=== PATIENT | female | born 1930 | race Caucasian/White ===

== ENCOUNTER 2017-08-07 02:15 | Inpatient (IN) | payer OTHER, MEDICARE ==
[~2017-08-07] VITALS: Ht 154.9 cm; Wt 45.0 kg
[~2017-08-07 02:15] MED LIST: FERROUS SULFAT325 M3; MAGNESIUM400 M1; TYLENOL EXTRA500 M2; VITAMIN B-121000 MC3 PO; VITAMIN B-650 M2 PO; ZANTAC150 M1 PO; ZINC10 M1; ZOLOFT50 M1 PO
[2017-08-07] MEDS ORDERED: MIRALAX17 G1 PO (11:33)
[2017-08-07] MEDS ORDERED: ASPIRIN EC325 M2 PO (11:33)
[2017-08-07] MEDS ORDERED: DILAUDID2 M1 PO (11:33)
[2017-08-07] MEDS ORDERED: PRILOSEC OTC20 M1 PO (11:33)
[2017-08-07] MEDS ORDERED: COLACE100 M1 PO (11:33)
--- NOTE | 2017-08-07 11:38 | Admission Core Measures ---
Acute Coronary Syndrome (CM) ACS Core Measures Acute Coronary Syndrome Diagnosis No Congestive Heart Failure (NEW) CHF Core Measures Congestive Heart Failure Diagnosis No Cerebrovascular Accident (NEW) CVA Core Measures CVA/TIA Diagnosis No Venous Thromboembolism VTE Core Luis (View Protocol) VTE Risk Factors Surgery No Mechanical VTE Prophylaxis d/t N/A MechProphylax Ordered No VTE Pharm Prophylaxis d/t NA PharmProphylax ordered Problem List As ranked by this Provider includes Assessment & Plan 1. Unilateral primary osteoarthritis, right knee HOME MEDS Home Med List Aspirin (Ecotrin*) 325 MG TABLET.DR 1 TAB PO BID ANTICOAGULATION Cyanocobalamin (Vitamin B-12) 1,000 MCG TABLET 1 TAB PO DAILY SUPPLEMENT ( Reported) Docusate Sodium (Colace) 100 MG CAPSULE 1 CAP PO BID STOOL SOFTENER Hydromorphone HCl (Dilaudid) 2 MG TABLET 1-2 TAB PO Q4-6 PRN PRN PAIN Omeprazole Magnesium (Prilosec Otc) 20 MG TABLET.DR 1 TAB PO DAILY GI PROTECTION Polyethylene Glycol 3350 (Miralax) 17 GRAM POWD.PACK 1 PAC PO DAILY CONSTIPATION Pyridoxine HCl (Vitamin B-6) 50 MG TABLET 1 TAB PO DAILY SUPPLEMENT (Reported ) Ranitidine HCl (Zantac) 150 MG TABLET 1 TAB PO BID GERD (Reported) Sertraline HCl (Zoloft) 50 MG TABLET 1 TAB PO DAILY MOOD (Reported)
--- NOTE | 2017-08-07 11:38 | Patient Discharge Instructions ---
See Addendum Discharge Instructions General Discharge Information You were seen/treated for: right knee pain You had these procedures: Right total knee replacement Watch for these problems: fever over 100.5 drainage from wound unable to bear weight on right leg Call Surgeon to remove: wound check in 6 weeks No bath, but you may shower: Yes Other wound care: daily dry dressing change Diet Continue normal diet: Yes Activity Activity Self Limited: Yes Activity Limited to: Weight bear as tolerated Acute Coronary Syndrome Inclusion Criteria At DC or during hospital stay patient has or had the following: ACS DIAGNOSIS No Discharge Core Measures Meds if any: Prescribed or Continued at Discharge Meds if any: NOT Prescribed or Continued at Discharge Congestive Heart Failure Inclusion Criteria At DC or during hospital stay patient has or had the following: CHF DIAGNOSIS No Discharge Core Measures Meds if any: Prescribed or Continued at Discharge Meds if any: NOT Prescribed or Continued at Discharge Cerebrovascular accident Inclusion Criteria At DC or during hospital stay patient has or had the following: CVA/TIA Diagnosis No Discharge Core Measures Meds if any: Prescribed or Continued at Discharge Meds if any: NOT Prescribed or Continued at Discharge Venous thromboembolism Inclusion Criteria VTE Diagnosis No VTE Type NONE VTE Confirmed by (Test) NONE Discharge Core Measures - Per Current guidelines, there needs to be overlap - treatment for the first 5 days of Warfarin therapy. - If discharged on Warfarin prior to 5 days of - overlap therapy, the patient will need to be - assessed for post discharge needs including - *Post discharge parental anticoagulation - *Warfarin and/or parental anticoagulation education - *Follow up date to check INR post discharge At least 5 days overlap therapy as Inpatient No Meds if any: Prescribed or Continued at Discharge Note: Overlap Therapy is Warfarin and Anticoagulant Meds if any: NOT Prescribed or Continued at Discharge
--- NOTE | 2017-08-07 11:42 | Surgical Discharge Summary ---
Visit Information Visit Dates Admission Date: 08/07/17 Discharge Date: 08/10/17 History of Present Illness Chief Complaint: right knee pain Medical History Isolation History: Standard Surgical History Pertinent Surgical History: non-contributory Review of Systems: none Physical Exam: Gen - nad Cardiac -S1S2 Lungs- CTAB Ext - Right adrienne wrap in place, incision closed with rené and sutures inferiorly, mild swelling, no erythema or drainage noted, significant ecchymosis noted, appropriately tender, compartment soft, senosry and motor intact, dressing changed, no edema or calf tenderness Hospital Course Course Attending Physician: Ino Catalan MD Primary Care Physician: Unknown Hospital Course: Pt presented to [facility] on 08/07/17 for an elective right total knee replacement with Dr. Catalan. She tolerated the procedure well. Post- operatively she was tolerating oral intake, voiding, her pain was controlled with oral medications, and she was cleared for discharge by physical therapy. She developed a syncopal episode with ekg changes and was evaluated by Cardiology who recommended CTA to r/o PE which was negative. She was also started on a statin and a beta ceasar, and will be provided with a script upon discharge. Incidental finding of a descending aortic aneurysm and was instructed to follow up with her PCP for further evaluation. Discharge instructions were reviewed with her and she was instructed to follow-up with Dr. Catalan in 6 weeks and to call sooner if she has any questions or concerns. Allergies: Coded Allergies: No Known Allergies (08/04/17) Disposition Summary Disposition Principal Diagnosis: primary unilateral right knee osteoarthritis Additional Diagnosis: SP Right TKA Discharge Disposition: home health services Discharge Instructions General Discharge Information Code Status: Full Code Patient's Diet: Regular Patient's Activity: wbat Follow-Up Instructions/Appts: [address] Catalan Medications at Discharge Discharge Medications: Continue taking these medications: Sertraline HCl (Zoloft) 50 MG TABLET 1 Tablet ORAL DAILY Comments: Last Taken: 08/10/17 Time: 09 Ferrous Sulfate (Ferrous Sulfate) 325 MG (65 MG IRON) TABLET Comments: NOT GIVEN IN HOSPITAL Pyridoxine HCl (Vitamin B-6) 50 MG TABLET 1 Tablet ORAL DAILY Comments: NOT GIVEN IN HOSPITAL Magnesium Oxide (Magnesium) 400 MG CAPSULE Comments: Last Taken: 08/10/17 IV GIVEN Time: 1343 Zinc Gluconate (ZINC) 10 MG LOZENGE Comments: NOT GIVEN IN HOSPITAL Cyanocobalamin (Vitamin B-12) 1,000 MCG TABLET 1 Tablet ORAL DAILY Comments: NOT GIVEN IN HOSPITAL Ranitidine HCl (Zantac) 150 MG TABLET 1 Tablet ORAL TWICE DAILY Comments: Last Taken: 08/09/17 Time: 06 Acetaminophen (Tylenol Extra Strength) 500 MG TABLET Comments: Last Taken: 08/10/17 Time: 1516 Start taking the following new medications: Aspirin (Ecotrin*) 325 MG TABLET.DR 1 Tablet ORAL TWICE DAILY Qty = 60 No Refills Comments: Last Taken: 08/10/17 Time: 923 Docusate Sodium (Colace) 100 MG CAPSULE 1 Capsule ORAL TWICE DAILY Qty = 7 No Refills Instructions: STOP TAKING IF YOU DEVELOP LOOSE STOOL/DIARRHEA Comments: Last Taken: 08/10/17 Time: 922 Hydromorphone HCl (Dilaudid) 2 MG TABLET 1-2 Tablet ORAL EVERY 4-6 HOURS NEEDED as needed for PAIN Qty = 36 No Refills Comments: Last Taken: 08/09/17 Time: 2100 Polyethylene Glycol 3350 (Miralax) 17 GRAM POWD.PACK 1 Packet ORAL DAILY Qty = 7 No Refills Instructions: dissolve in water. STOP TAKING IF YOU DEVELOP LOOSE STOOL/DIARRHEA Comments: Last Taken: 08/10/17 Time: 922 Omeprazole Magnesium (Prilosec Otc) 20 MG TABLET.DR 1 Tablet ORAL DAILY Qty = 30 No Refills Comments: Last Taken: 08/09/17 Time: 06 Atorvastatin Calcium (Atorvastatin Calcium) 10 MG TABLET 1 Tablet ORAL DAILY Qty = 30 No Refills Metoprolol Tartrate (Metoprolol Tartrate) 25 MG TABLET 12.5 Milligram ORAL TWICE DAILY Qty = 60 No Refills
[2017-08-07 11:53] LABS: ABSOLUTE BASOPHIL COUNT 0 /CUMM (0.0-0.2); ABSOLUTE EOSINOPHIL COUNT 0.1 /CUMM (0.0-0.7); ABSOLUTE GRANULOCYTE CT 13.3 /CUMM (1.4-6.5); ABSOLUTE MONOCYTE COUNT 1.3 /CUMM (0.10-0.60); BASOPHIL % 0.1 % (0.0-2.0); EOSINOPHIL % 0.7 % (0-5); GRANULOCYTE % 79.5 % (42.2-75.2); HEMATOCRIT 32.4 % (37-47); MEAN CORPUSCULAR HGB 31.7 PG (27.0-31.0); MEAN CORPUSCULAR HGB CONC 33.6 G/DL (33.0-37.0); MEAN CORPUSCULAR VOLUME 94.4 FL (81.0-99.0); MEAN PLATELET VOLUME 6.8 FL (7.4-10.4); PLATELET COUNT 422 /CUMM (130-400); RED BLOOD CELL CT 3.43 /CUMM (4.20-5.40); WHITE BLOOD CELL COUNT 16.8 /CUMM (4.8-10.8)
--- NOTE | 2017-08-07 13:29 | Operative Report ---
Operative/Inv Procedure Report Surgery Date: 08/07/17 Name of Procedure: Right total knee replacement Pre-Operative Diagnosis: Primary right knee DJD Post-Operative Diagnosis: Same Estimated Blood Loss: 50ml to 100ml Surgeon/Diesel Engine Erector: Alayna GUTIÉRREZ,Ino Ann Anesthesia: block Operative/Procedure Note Note: Description of Procedure: The patient was taken to the operating room and positively identified. After induction of spinal anesthesia and administration of appropriate pre-operative antibiotics, the patient was positioned supine on the operating room table and all bony prominences were well padded. A well-padded pneumatic tourniquet was placed on the right upper thigh. After performing a surgical timeout, the right lower extremity was prepped and draped in the usual sterile fashion. After exsanguination with Esmarch the tourniquet was inflated to 250mm of mercury. A standard medial parapatellar approach was made to the knee. This was carried down through skin and subcutaneous tissue to the level of the fascia. Meticulous hemostasis was maintained with Bovie electrocautery. The extensor mechanism and patellar retinaculum were opened sharply and the patella was everted. The infrapatellar fat was resected in order to improve exposure. Osteophytes were trimmed from the patella and femoral condyles and the patella was re-everted and tucked laterally. A medial release was performed and the cruciate ligaments were resected. The tibia was then subluxed anteriorly. At this point was noted that her bone was extremely osteoporotic. Utilizing the appropriate extra-medullary guide, the proximal tibia was trimmed perpendicular to the long axis of the tibial shaft. Attention was then turned to the femur. After opening the medullary canal, the distal femoral cut was made in 6 degrees of valgus utilizing the appropriate intra-medullary guide. The extension gap was checked and found to be appropriate. The femur was then sized and the remainder of the femoral cuts were made with a size #2 4-in-1 femoral cutting guide. The flexion gap was checked and found to be symmetric and appropriate. The knee was then trialed with a size #2CR femoral component, a size #2 tibial component and a size 13 mm CS polyethylene insert. The patella was not resurfaced due to its reasonably good preoperative condition. This yielded excellent range of motion, stability and patellar tracking. All trial components were removed and the knee was copiously irrigated with sterile saline. All components were cemented into place with [employer]plex cement. All the components were of the [employer] knee system of the above stated sizes. The knee was again irrigated after cementation. The extensor mechanism and patellar retinaculum were repaired using interrupted #1 vicryl suture. The skin was re-approximated with 2-0 vicryl and closed with rené. A sterile dressing was applied, the tourniquet was deflated, the patient was awakened and taken to the recovery room in satisfactory condition.
--- NOTE | 2017-08-07 15:59 | PN- Orthopedic ---
Subjective Subjective: POC feeling ok, no pain. awaiting bed assignment in PACU. DTV postop. naveed crackers, water. no oob yet Objective Vital Signs and I&Os HR 80s Physical Exam: GEN- NAD CARD- S1S2 RRR PULM- CTAB ABD- soft nt EXT-right lle dressed in adrienne, feet warm, gross motor/sensation intact/equal bl, calves soft nt, onQ catheter in place- bulb not on Assessment/Plan Assessment/Plan A- POD0 sp R TKR, stable, awaiting pt eval P- prn pain meds asa 325bid, alps oob, pt, wbat home meds prn antiemetics dsg change pod2 onq dc planning Core Measures Venous Thromboembolism VTE Risk Factors Surgery No Mechanical VTE Prophylaxis d/t N/A MechProphylax Ordered No VTE Pharm Prophylaxis d/t NA PharmProphylax ordered
[2017-08-07 17:10] VITALS: BP 160/80
[2017-08-07 21:30] VITALS: BP 160/90
[2017-08-08 01:00] VITALS: BP 146/78
[2017-08-08 07:02] VITALS: BP 132/74
[2017-08-08 08:41] LABS: ABSOLUTE BASOPHIL COUNT 0.1 /CUMM (0.0-0.2); ABSOLUTE EOSINOPHIL COUNT 0 /CUMM (0.0-0.7); ABSOLUTE GRANULOCYTE CT 14.9 /CUMM (1.4-6.5); ABSOLUTE LYMPH COUNT 1.6 /CUMM (1.2-3.4); ABSOLUTE MONOCYTE COUNT 1.8 /CUMM (0.10-0.60); BASOPHIL % 0.7 % (0.0-2.0); EOSINOPHIL % 0 % (0-5); GRANULOCYTE % 80.8 % (42.2-75.2); HEMATOCRIT 29.5 % (37-47); MEAN CORPUSCULAR HGB CONC 33.9 G/DL (33.0-37.0); MEAN CORPUSCULAR VOLUME 94.6 FL (81.0-99.0); MEAN PLATELET VOLUME 7.7 FL (7.4-10.4); PLATELET COUNT 413 /CUMM (130-400); RBC DISTRIBUTION WIDTH 14.8 % (11.5-14.5); RED BLOOD CELL CT 3.12 /CUMM (4.20-5.40); WHITE BLOOD CELL COUNT 18.4 /CUMM (4.8-10.8)
[2017-08-08 11:30] VITALS: BP 120/70
[2017-08-08 15:24] VITALS: BP 114/78
--- NOTE | 2017-08-08 15:59 | Event Note ---
Event Note Event Note: Rapid response was called when she was found to have had a syncopal episode that lasted for less than 30 seconds while she was undergoing physical therapy. Ms Reyes had a TKR POD 0 known smoker, with no previous cardiac history or stents placed in the past. She was found to have had a staring episode that lasted for 30 seconds or so. She felt lightheaded prior to the episode, but did not recollect anything after the episode. she was alert and oriented after the episode. No dyspnea, chest discomfort, abdominal pain or vomiting. When she was examined, she did not have any symptoms- vitals stable BP 120/82, RR 86, Pulse ox 94 RA. Heart and lung exam wnl. EKG was ordered that revealed new Q waves in V2, V3 and ST elevation of 1mm or so, in V3, V4 which were new compared to . Serial EKGs and Troponins ordered. Discussed the EKG w/ Dr Duarte who came up to see the pt right away. After he evaluated the pt, he thought that RI is not completely ruled out given absence of symptoms. Other thoughts were if the leads were misplaced. Plan was discussed with Dr. Duarte and kalie Horn, and asked him to inform the attending. Plan was to transfer the pt to telemetry for further monitoring and follow up on troponin level. She was already given aspirin in the am, and no new medical recommendations were made. Informed Kory to follow up on Troponin level and follow up on cardiology recommendations for further work up. Also, asked him to call the attending and MOD to get a medical consult to make sure that these are followed up.
--- NOTE | 2017-08-08 16:16 | Event Note ---
Event Note Event Note: troponin 0.83 with ekg chnages during possible/seizure/syncopal episode earlier this afternoon transferred to tele per cardiology currently patient resting comfortably deneis cp, sob, palpitations, n+v, vss plan reviewed with dr gomez will repeat ekg/troponin @1900(4hrs after 1st draw) has already taken asa 325mg po this am no other pharm intervention at this time will monitor closely attending notified
[2017-08-08 17:38] VITALS: BP 118/59
--- NOTE | 2017-08-08 18:59 | Cons- Cardiology ---
General Information and HPI Consulting Request Date of Consult: 08/08/17 Requested By: Ino Catalan MD History of Present Illness: This patient is an 86 year old female with history of tobacco abuse who underwent a right total knee replacement today. Surgery went well but following her surgery, while engaged in conversation with physical therapy, the patient suddenly had a staring episode that lasted about 30 seconds. There was a pre- monitory feeling of lightheadedness but not palpitations. There was no associated incontinence and the patient did not appear post ictal but rather was alert following the episode. An ECG was done that disclosed precordial ST elevations. In consideration of this abnormal ECG the patient was immediately seen and appeared well. She denies any chest pain, pressure, tightness, shortness of breath, lightheadedness or palpitations. She has noted heartburn in the past but not at this time. The patient's blood pressure was reportedly 120/ 82 with a HR of 86 and had a normal O2 saturation of 94%. Her troponin is mildly elevated. Allergies/Medications Allergies: Coded Allergies: No Known Allergies (08/04/17) Home Med List: Acetaminophen (Tylenol Extra Strength) 500 MG TABLET PAIN (Reported) Aspirin (Ecotrin*) 325 MG TABLET.DR 1 TAB PO BID ANTICOAGULATION Cyanocobalamin (Vitamin B-12) 1,000 MCG TABLET 1 TAB PO DAILY SUPPLEMENT ( Reported) Docusate Sodium (Colace) 100 MG CAPSULE 1 CAP PO BID STOOL SOFTENER STOP TAKING IF YOU DEVELOP LOOSE STOOL/DIARRHEA Ferrous Sulfate 325 MG (65 MG IRON) TABLET SUPPLEMENT (Reported) Hydromorphone HCl (Dilaudid) 2 MG TABLET 1-2 TAB PO Q4-6 PRN PRN PAIN Magnesium Oxide (Magnesium) 400 MG CAPSULE SUPPLEMENT (Reported) Omeprazole Magnesium (Prilosec Otc) 20 MG TABLET.DR 1 TAB PO DAILY GI PROTECTION Polyethylene Glycol 3350 (Miralax) 17 GRAM POWD.PACK 1 PAC PO DAILY CONSTIPATION dissolve in water. STOP TAKING IF YOU DEVELOP LOOSE STOOL/DIARRHEA Pyridoxine HCl (Vitamin B-6) 50 MG TABLET 1 TAB PO DAILY SUPPLEMENT (Reported ) Ranitidine HCl (Zantac) 150 MG TABLET 1 TAB PO BID GERD (Reported) Sertraline HCl (Zoloft) 50 MG TABLET 1 TAB PO DAILY MOOD (Reported) Zinc Gluconate (ZINC) 10 MG LOZENGE SUPPLEMENT (Reported) Review of Systems Review of Systems: A twelve point review of systems is remarkable for occasional heartburn. Past History Medical History Blood Transfusion Hx: No Respiratory: SMOKER Gastrointestinal: PERF GASTRIC ULCER Psychiatric: depression Cancer(s): breast cancer Surgical History Surgical History: DOUBLE MASTECTOMY 30YRAGO, breast implants Psychosocial History Where Do You Live? Home Services at Home: Home Health Aide Smoking Status: Current Everyday Smoker Exam & Diagnostic Data Vital Signs and I&O Vital Signs Date Time Temp Pulse Resp B/P B/P Pulse O2 O2 Flow FiO2 Mean Ox Delivery Rate 08/08 1524 97.8 79 20 114/78 97 08/08 1130 97.8 72 16 120/70 100 08/08 0702 97.6 71 20 132/74 98 Room Air 08/08 0100 97.6 75 20 146/78 99 Room Air 08/07 2130 98.1 82 20 160/90 98 Room Air 08/07 1943 Room Air Intake & Output 08/08 1600 08/08 0800 08/08 0000 08/07 1600 08/07 0800 08/07 0000 Intake Total 1205 850 800 Output Total 125 445 200 Balance 1080 405 600 Intake, IV 525 600 520 Intake, Oral 680 250 280 Output, Urine 125 445 200 Patient 100 lb 86 lb Weight Weight Reported by Patient Measurement Method Physical Exam: General: WD/WN female in NAD; alert and oriented x 3 HEENT: NC/AT, PERRL, EOMI Neck: no JVD, no carotid bruit Heart: RRR w/o murmur Lungs: clear bilaterally Abdomen: soft, NT, +ve bowel sounds Extremities: no edema Assessment/Plan Assessment/Plan * This patient has an abnormal ECG with elevated troponin. She did have some slight precordial ST elevations even at baseline but the current changes are a bit worse. In consideration of her complete lack of discomfort, I am not convinced that she is having a major anterior [place] but there is the possibility that the patient is a poor historian and I am being misled. We will follow her symptoms and cardiac enzymes until they peak with a repeat ECG and set of enzymes in four hours. IV heparin and anticoagulants that may be needed in the setting of a percutaneous coronary intervention would be at elevated risk in the setting of surgery today and the patient is also not a candidate for TPA for the same reason. Consideration should be given to the rise in troponin from a PE after her surgery. I recommend obtaining a D-dimer and ABG. If either of these are abnormal then send patient for a CT angiogram to assess for a PE. Monitor on telemetry. Begin aspirin 325mg daily. If chest discomfort add NTG paste 1/2 inch !Q 6 hours. * The patient's brief staring episode may have been neurologic in origin but consideration needs to be given to a ventricular dysrhythmia. We will monitor this patient on telemetry. Begin Metoprolol 12.5mg BID. Consult Acknowledgment - Thank you for your consult request.
[2017-08-08 22:45] VITALS: BP 114/70
--- NOTE | 2017-08-09 07:06 | PN- Orthopedic ---
Subjective Subjective: POD#2 S/P RIGHT TKA Transferred to tele yesterday afternoon for syncopal episode and ekg chnages no major issues overnight janes cp, sob, no n+v troponin yesterday .66(.83) metoprolol started yesterday per cardiology resting comfortably now, in good spirits, asking if she will be able to home tomorrow Objective Vital Signs and I&Os Vital Signs Date Time Temp Pulse Resp B/P B/P Pulse O2 O2 Flow FiO2 Mean Ox Delivery Rate 08/08 2245 98.8 83 18 114/70 97 08/08 1524 97.8 79 20 114/78 97 08/08 1130 97.8 72 16 120/70 100 Intake & Output 08/09 0800 08/09 0000 08/08 1600 08/08 0800 08/08 0000 08/07 1600 Intake Total 1205 850 800 Output Total 400 125 445 200 Balance -400 1080 405 600 Intake, IV 525 600 520 Intake, Oral 680 250 280 Output, Urine 400 125 445 200 Patient 99 lb 5 oz 100 lb 86 lb Weight Weight Reported by Patient Measurement Method Physical Exam: cv: rrr lungs: clear abd; soft, +bs ext: drsg changed, wound c/d/i no calf tenderness bilat distal cms intact Assessment/Plan Assessment/Plan ortho stable no cardiac events overnight denies cp now plan f/u cardiology if stable transfer back to [facility] and resume pt f/u am labs advance diet titrate pain meds Core Measures Venous Thromboembolism VTE Risk Factors Surgery No Mechanical VTE Prophylaxis d/t N/A MechProphylax Ordered No VTE Pharm Prophylaxis d/t NA PharmProphylax ordered
[2017-08-09 07:53] VITALS: BP 122/68
[2017-08-09 08:43] LABS: ABSOLUTE BASOPHIL COUNT 0.1 /CUMM (0.0-0.2); ABSOLUTE EOSINOPHIL COUNT 0 /CUMM (0.0-0.7); ABSOLUTE LYMPH COUNT 1.2 /CUMM (1.2-3.4); ABSOLUTE MONOCYTE COUNT 1.8 /CUMM (0.10-0.60); BASOPHIL % 0.3 % (0.0-2.0); EOSINOPHIL % 0.2 % (0-5); GRANULOCYTE % 82.8 % (42.2-75.2); HEMATOCRIT 28.2 % (37-47); MEAN CORPUSCULAR HGB 31.9 PG (27.0-31.0); MEAN CORPUSCULAR HGB CONC 33.3 G/DL (33.0-37.0); MEAN CORPUSCULAR VOLUME 95.8 FL (81.0-99.0); MEAN PLATELET VOLUME 7.9 FL (7.4-10.4); PLATELET COUNT 406 /CUMM (130-400); RBC DISTRIBUTION WIDTH 14.9 % (11.5-14.5); RED BLOOD CELL CT 2.94 /CUMM (4.20-5.40); WHITE BLOOD CELL COUNT 18.1 /CUMM (4.8-10.8)
[2017-08-09 14:40] VITALS: BP 122/74
--- NOTE | 2017-08-09 17:37 | PN- Cardiology ---
Subjective Subjective: * No chest pain or shortness of breath. * Cardiac enzymes had an initial small rise and are coming down. Objective Vital Signs and I&Os Vital Signs Date Time Temp Pulse Resp B/P B/P Pulse O2 O2 Flow FiO2 Mean Ox Delivery Rate 08/09 1440 99.0 86 18 122/74 96 Room Air 08/09 0855 126/68 08/09 0753 98.4 84 18 122/68 95 Room Air 08/08 2245 98.8 83 18 114/70 97 Intake & Output 08/09 1600 08/09 0800 08/09 0000 08/08 1600 08/08 0800 08/08 0000 Intake Total 450 1205 850 800 Output Total 375 400 125 445 200 Balance 75 -400 1080 405 600 Intake, IV 525 600 520 Intake, Oral 450 680 250 280 Output, Urine 375 400 125 445 200 Patient 99 lb 5 oz 100 lb 86 lb Weight Weight Reported by Patient Measurement Method Physical Exam: General: WD/WN female in NAD; alert and oriented x 3 HEENT: NC/AT, PERRL, EOMI Neck: no JVD, no carotid bruit Heart: RRR w/o murmur Lungs: clear bilaterally Abdomen: soft, NT, +ve bowel sounds Extremities: no edema Assessment/Plan Assessment/Plan * Consideration should be given to the rise in troponin from a PE after her surgery. Would pursue a D-dimer and ABG as previously recommended. If either of these are abnormal then send patient for a CT angiogram to assess for a PE. * This patient had an abnormal ECG with elevated troponin. She did have some slight precordial ST elevations even at baseline but her post operative ECG did appear a bit worse. I do not think this patient experienced any major anterior CT but she likely does have some degree of coronary artery disease. We will continue medical therapy and will risk stratify her as an outpatient to determine the extent of ischemia. If mild and non-life threatening then medical therapy will be pursued. If chest discomfort add NTG paste 1/2 inch !Q 6 hours. Continue aspirin and begin a statin. * The patient's brief staring episode may have been neurologic in origin but consideration needs to be given to a ventricular dysrhythmia. We will monitor this patient on telemetry. Continue Metoprolol 12.5mg BID. Continue telemetry? Yes
[2017-08-09 20:29] VITALS: BP 104/64
[2017-08-10 06:57] VITALS: BP 144/80
--- NOTE | 2017-08-10 08:08 | PN- Orthopedic ---
Subjective Subjective: Patient offers no complaints this morning. Reports voiding spontanously, passing flatus and tolerating a diet. Pain is currently well controlled. No further episodes of syncope Objective Vital Signs and I&Os Vital Signs Date Time Temp Pulse Resp B/P B/P Pulse O2 O2 Flow FiO2 Mean Ox Delivery Rate 08/10 0657 98.4 98 20 144/80 94 Room Air 08/09 210 97 106/66 08/09 2028 99.4 97 18 104/64 94 08/09 1440 99.0 86 18 122/74 96 Room Air 08/09 0855 126/68 Intake & Output 08/10 1600 08/10 0800 08/10 0000 08/09 1600 08/09 0800 08/09 0000 Intake Total 120 290 450 Output Total 450 200 375 400 Balance -330 90 75 -400 Intake, IV 50 Intake, Oral 120 240 450 Output, Urine 450 200 375 400 Patient 99 lb 5 oz Weight Physical Exam: Gen - nad Cardiac -S1S2 Lungs- CTAB Ext - Right adrienne wrap in place, incision closed with rené and sutures inferiorly, mild swelling, no erythema or drainage noted, significant ecchymosis noted, appropriately tender, compartment soft, senosry and motor intact, dressing changed, no edema or calf tenderness Current Medications: Current Medications Sig/Gilberto Start time Last Medication Dose Route Stop Time Status Admin Aspirin 325 MG BID 08/07 2199 AC 08/09 PO 2099 Docusate Sodium 100 MG BID 08/07 2199 AC 08/09 PO 2100 Hydromorphone HCl 2 MG Q4P PRN 08/07 1715 AC 08/09 PO 210 Hydromorphone HCl 4 MG Q4P PRN 08/07 171 PO Magnesium Sulfate 1 GM Q2H 08/09 1545 CA 08/09 Dextrose/Water 100 ML IV 08/09 1944 1855 Melatonin 5 MG .STK-MED ONE 08/09 2057 DC PO 08/09 2058 Melatonin 5 MG AT BEDTIME PRN 08/08 0130 08/09 PO 2100 Metoprolol Tartrate 12.5 MG BID 08/09 1000 AC 08/09 PO 210 Morphine Sulfate 2 MG Q2P PRN 08/07 1715 AC 08/10 IV 0013 Nicotine 14 MG DAILY 08/07 1342 TOP Omeprazole 20 MG DAILY AC 08/08 0700 AC 08/09 PO 0631 Ondansetron HCl 4 MG Q6P PRN 08/07 213 AC 08/07 IV 2139 Polyethylene Glycol 17 GM DAILY 08/08 1000 AC 08/09 PO 0856 Potassium Chloride 40 MEQ ONCE ONE 08/09 1545 DC 08/09 PO 08/09 1546 1705 Promethazine HCl 12.5 MG Q6-PRN PRN 08/07 2129 AC 08/07 IV 08/14 2128 2244 Ropivacaine 500 ML ONCE ONE 08/07 1515 DC 08/07 ON-Q Ball 1 BAG INJ 08/10 0544 1515 Sertraline HCl 50 MG DAILY 08/08 1000 AC 08/09 PO 0857 Results Last 48 Hours of Labs: Laboratory Tests 08/10 08/09 08/08 0630 0626 2100 Chemistry Sodium (137 - 145 mmol/L) Pending 131 L Potassium (3.5 - 5.1 mmol/L) Pending 3.5 Chloride (98 - 107 mmol/L) Pending 94 L Carbon Dioxide (22 - 30 mmol/L) Pending 26 Anion Gap (5 - 16) Pending 12 BUN (7 - 17 mg/dL) Pending 12 Creatinine (0.5 - 1.0 mg/dL) Pending 0.6 Estimated GFR (>60 ml/min) > 60 BUN/Creatinine Ratio (7 - 25 %) Pending 20.0 Phosphorus Pending Magnesium (1.6 - 2.3 mg/dL) Pending 1.0 L Troponin I (< 0.11 ng/ml) 0.56 *H Cancelled Hematology CBC w Diff NO MAN DIFF REQ WBC (4.8 - 10.8 /CUMM) 18.1 H RBC (4.20 - 5.40 /CUMM) 2.94 L Hgb (12.0 - 16.0 G/DL) 9.4 L Hct (37 - 47 %) 28.2 L MCV (81.0 - 99.0 FL) 95.8 MCH (27.0 - 31.0 PG) 31.9 H MCHC (33.0 - 37.0 G/DL) 33.3 RDW (11.5 - 14.5 %) 14.9 H Plt Count (130 - 400 /CUMM) 406 H MPV (7.4 - 10.4 FL) 7.9 Gran % (42.2 - 75.2 %) 82.8 H Lymphocytes % (20.5 - 51.1 %) 6.8 L Monocytes % (1.7 - 9.3 %) 9.9 H Eosinophils % (0 - 5 %) 0.2 Basophils % (0.0 - 2.0 %) 0.3 Absolute Granulocytes (1.4 - 6.5 /CUMM) 15.0 H Absolute Lymphocytes (1.2 - 3.4 /CUMM) 1.2 Absolute Monocytes (0.10 - 0.60 /CUMM) 1.8 H Absolute Eosinophils (0.0 - 0.7 /CUMM) 0 Absolute Basophils (0.0 - 0.2 /CUMM) 0.1 08/08 08/08 08/08 1900 1434 1434 Chemistry Troponin I (< 0.11 ng/ml) 0.66 *H Cancelled 0.83 *H Prolactin (3.0 - 18.6 ng/mL) 36.1 H Assessment/Plan Assessment/Plan 86 F POD 3 s/p R TKR, hospital course complicated by syncopal episode, abnormal ekg changes with elevated troponin which is trending down and hypomagnesemia Reg diet Pain regimen asa bid, alps oob PT, WBAT Cont dry daily dressing changes Cont metoprolol 12.5 bid Add statin, lipitor 10 mg qd D-dimer an abg per cardio If abnormal, CTA to rule out PE, currently asx F/u labs D/c pending labs, cleared by PT Will d/w Dr. Catalan Core Measures Venous Thromboembolism VTE Risk Factors Surgery No Mechanical VTE Prophylaxis d/t N/A MechProphylax Ordered No VTE Pharm Prophylaxis d/t NA PharmProphylax ordered
[2017-08-10 14:16] VITALS: BP 118/70
--- NOTE | 2017-08-10 14:54 | CT SCAN REPORT ---
EXAMINATION: CT ANGIOGRAM CHEST CLINICAL INFORMATION: Status post right knee arthroplasty. Evaluate for PE. COMPARISON: None TECHNIQUE: Multiple axial images were obtained through the chest after the administration of 95 mL of Optiray 320 intravenous contrast. Images were reviewed on a dedicated 3-D workstation. DLP: 166.90 mGy-cm FINDINGS: Vasculature: There is no evidence of a central or segmental pulmonary embolism. Smaller subsegmental vessels are too small to be accurately assessed. Atherosclerotic disease of the aorta with intimal calcification. Thrombotic plaques and aneurysmal dilatation noted in the distal descending aorta (series 2 image 290) measuring approximately 3.5 cm in transverse diameter. LUNGS: Moderate centrilobular emphysematous changes. Tracheal bronchial tree is within normal limits. There is plugging noted in the right lower lobe bronchus and segmental branches (series 2 image 1 90-212) mild mucous plugging also noted in the left lower lobe segmental/subsegmental bronchi. Mild diffuse bronchial wall thickening noted bilaterally. Right apical pleural based nodule (series 2 image 13) measuring approximately 0.7 cm. Patchy pleural-based reticular changes along the right major fissure noted in the right upper lobe (series 2 image 101, 145, 157, 221 and 254. There is adjacent pleural-based plaque-like nodule along the minor fissure (series 2 image 260) measuring 0.6 cm. This likely represents a fissural node. Approximately 0.5 cm nodule with adjacent reticular opacity left lower lobe (series 2 image 261) Mediastinum: No gross lymphadenopathy. These left pleural effusion. Chest wall and axilla: Status post bilateral breast prosthesis. Partially collapsed appearance of the left breast prosthesis with surrounding fluid represents an age indeterminate finding. Upper abdomen: Limited assessment. Osseous structures: Moderate kyphotic changes of the thoracic spine. No acute or suspicious osseous abnormality. IMPRESSION: 1. There is no CTA evidence of acute pulmonary embolism. 2. 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 3. Plugging right lower lobe bronchus extending into the segmental and subsegmental bronchi. Subsegmental bronchial plugging also noted in the left lower lobe. 4. Nonspecific subpleural reticular opacities bilateral lungs as detailed. Age indeterminate nodular opacities right upper lobe and left lower lobe. 5. Partially collapsed appearance of the left breast prosthesis with surrounding fluid. This presents age indeterminate change. Clinical correlation is recommended.
[2017-08-10] MEDS ORDERED: METOPROLOL TART25 M1 PO (15:28)
[2017-08-10] MEDS ORDERED: ATORVASTATIN CA10 M1 PO (15:28)
--- NOTE | 2017-08-10 20:17 | PN- Cardiology ---
Subjective Subjective: * No complaints of chest pain, lightheadedness or palpitations. * decreased pO2 with respiratory alkylosis and increased D-dimer * increased WBC count Objective Vital Signs and I&Os Vital Signs Date Time Temp Pulse Resp B/P B/P Pulse O2 O2 Flow FiO2 Mean Ox Delivery Rate 08/10 1416 98.1 83 22 118/70 98 Room Air 08/10 0923 98 144/80 08/10 0657 98.4 98 20 144/80 94 Room Air 08/09 210 97 106/66 08/09 2028 99.4 97 18 104/64 94 Intake & Output 08/10 1600 08/10 0800 08/10 0000 08/09 1600 08/09 0800 08/09 0000 Intake Total 560 120 290 450 Output Total 350 450 200 375 400 Balance 210 -330 90 75 -400 Intake, IV 200 50 Intake, Oral 360 120 240 450 Output, Urine 350 450 200 375 400 Patient 99 lb 5 oz Weight Physical Exam: General: WD/WN female in NAD; alert and oriented x 3 HEENT: NC/AT, PERRL, EOMI Neck: no JVD, no carotid bruit Heart: RRR w/o murmur Lungs: clear bilaterally Abdomen: soft, NT, +ve bowel sounds Extremities: no edema Assessment/Plan Assessment/Plan * I suspect this patient threw small peripheral emboli following surgery causing a small rise in cardiac enzymes with increased D-dimer and respiratory alkylosis with decreased pO2. Her chest CT did not show any central or major segmental pulmonary emboli. Begin Eliquis if now okay from a surgical standpoint. * Increased WBC count with mucous plugging. Consider a pulmonary consult. Check UA with C + S. * This patient had an abnormal ECG with elevated troponin. She did have some slight precordial ST elevations even at baseline but her post operative ECG did appear a bit worse. I do not think this patient experienced any major anterior OK but she likely does have some degree of coronary artery disease. We will continue medical therapy and will risk stratify her as an outpatient to determine the extent of ischemia. If mild and non-life threatening then medical therapy will be pursued. If chest discomfort add NTG paste 1/2 inch !Q 6 hours. Continue aspirin and begin a statin. * The patient's brief staring episode may have been neurologic in origin but consideration needs to be given to a ventricular dysrhythmia. Continue to monitor this patient on telemetry. Continue Metoprolol 12.5mg BID. Continue telemetry? Yes
[2017-08-10 22:53] VITALS: BP 116/64
[2017-08-11 06:47] VITALS: BP 122/66
--- NOTE | 2017-08-11 08:53 | Cons- Pulmonary ---
General Information and HPI Consulting Request Date of Consult: 08/11/17 Requested By: Dr. Solomon Reason for Consult: Mucous plugging CT scan of the chest. History of Present Illness: Patient is an 86-year-old actively smoking greater than one half pack per day with symptoms of bronchitis status post right knee replacement 5 days ago. Patient had a episode of staring and unresponsiveness postoperatively and was found to have abnormal EKG troponins and d-dimer. CTA did not show evidence of pulmonary embolism there was evidence of bilateral mucous plugging. Patient has had a chronic cough productive of sputum secondary to smoking. Denies having been evaluated for COPD or taking bronchodilator medications. She is comfortable on room air and denies shortness of breath or chest pain. Allergies/Medications Allergies: Coded Allergies: No Known Allergies (08/04/17) Home Med List: Acetaminophen (Tylenol Extra Strength) 500 MG TABLET PAIN (Reported) Aspirin (Ecotrin*) 325 MG TABLET.DR 1 TAB PO BID ANTICOAGULATION Atorvastatin Calcium 10 MG TABLET 1 TAB PO DAILY per cards Cyanocobalamin (Vitamin B-12) 1,000 MCG TABLET 1 TAB PO DAILY SUPPLEMENT ( Reported) Docusate Sodium (Colace) 100 MG CAPSULE 1 CAP PO BID STOOL SOFTENER STOP TAKING IF YOU DEVELOP LOOSE STOOL/DIARRHEA Ferrous Sulfate 325 MG (65 MG IRON) TABLET SUPPLEMENT (Reported) Hydromorphone HCl (Dilaudid) 2 MG TABLET 1-2 TAB PO Q4-6 PRN PRN PAIN Magnesium Oxide (Magnesium) 400 MG CAPSULE SUPPLEMENT (Reported) Metoprolol Tartrate 25 MG TABLET 12.5 MG PO BID blood pressure Omeprazole Magnesium (Prilosec Otc) 20 MG TABLET.DR 1 TAB PO DAILY GI PROTECTION Polyethylene Glycol 3350 (Miralax) 17 GRAM POWD.PACK 1 PAC PO DAILY CONSTIPATION dissolve in water. STOP TAKING IF YOU DEVELOP LOOSE STOOL/DIARRHEA Pyridoxine HCl (Vitamin B-6) 50 MG TABLET 1 TAB PO DAILY SUPPLEMENT (Reported ) Ranitidine HCl (Zantac) 150 MG TABLET 1 TAB PO BID GERD (Reported) Sertraline HCl (Zoloft) 50 MG TABLET 1 TAB PO DAILY MOOD (Reported) Zinc Gluconate (ZINC) 10 MG LOZENGE SUPPLEMENT (Reported) Review of Systems Review of Systems Constitutional: Denies: chills, fever. Cardiovascular: Denies: chest pain, orthopena. Respiratory: Reports: cough. Denies: short of breath, wheezing. GI: Denies: abdominal pain, diarrhea, melena. Past History Medical History Blood Transfusion Hx: No Respiratory: SMOKER Gastrointestinal: PERF GASTRIC ULCER Psychiatric: depression Cancer(s): breast cancer Surgical History Surgical History: DOUBLE MASTECTOMY 30YRAGO breast implants Psychosocial History Where Do You Live? Home Services at Home: Home Health Aide Smoking Status: Current Everyday Smoker Exam & Diagnostic Data Last 24 Hrs of Vital Signs/I&O Vital Signs Date Time Temp Pulse Resp B/P B/P Pulse O2 O2 Flow FiO2 Mean Ox Delivery Rate 08/11 0647 98.9 85 18 122/66 95 Room Air 08/10 2253 99.0 93 20 116/64 96 Room Air 08/10 2041 83 118/70 08/10 1416 98.1 83 22 118/70 98 Room Air 08/10 0923 98 144/80 Intake & Output 08/11 1600 08/11 0800 08/11 0000 Intake Total 110 200 Output Total 300 Balance 110 -100 Intake, IV 10 Intake, Oral 100 200 Output, Urine 300 Resting room air oxygen saturation 95-96% exam for chest shows diminished breath sounds there are rare rhonchi there are no wheezes cardiac exam shows a regular S1 and S2 without murmurs abdomen is soft nontender. Right lower extremity has an Michael wrap in place. Last 48 Hrs of Labs/Maynor: Laboratory Tests 08/10/17 0925: pH 7.47 H, pCO2 33 L, pO2 76 L, HCO3 23, ABG O2 Sat (Measured) 94.0 L, Carboxyhemoglobin 1.0 L, O2 Concentration % RA, Phlebotomy Draw Site LEFT BRACHIAL 08/10/17 0830: D-Dimer High Sensitivty 685 H 08/10/17 0630: Anion Gap 11, Estimated GFR > 60, BUN/Creatinine Ratio 18.0, Phosphorus 3.0, Magnesium 1.5 L Assessment/Plan Impression/Plan: 86-year-old woman status post knee surgery has had persistent leukocytosis abnormal troponins EKG without evidence of respiratory failure. CAT scan shows bilateral retained airway secretions without atelectasis or pneumonia. There is no evidence of pulmonary embolism on what appeared to be an adequate time study Recommendations: Mobilize the patient out of bed and ambulate as tolerated per orthopedics. Aggressive pulmonary toilet. Provide a flutter valve. Obtain sputum C&S. If she has continued difficulty raising sputum use of Mucomyst nebulization can be utilized. Further management of her abnormal troponins EKG and anticoagulation per cardiology and orthopedics. Patient will need follow-up as an outpatient for pulmonary nodule and pulmonary function testing. Consult Acknowledgment - Thank you for your consult request.
--- NOTE | 2017-08-11 09:33 | PN- Orthopedic ---
Subjective Subjective: Events of this week reviewed. Pt presently without complaints of chest pain or shortness breath. Has been on room air. Feels mobility has been slowed by surgical site pain, not fatigue. Denies nausea and vomitting. Has been voiding. Is eagerly anticipating discharge to home today. Objective Vital Signs and I&Os Vital Signs Date Time Temp Pulse Resp B/P B/P Pulse O2 O2 Flow FiO2 Mean Ox Delivery Rate 08/11 0647 98.9 85 18 122/66 95 Room Air 08/10 2253 99.0 93 20 116/64 96 Room Air 08/10 2041 83 118/70 08/10 1416 98.1 83 22 118/70 98 Room Air 08/10 0923 98 144/80 Intake & Output 08/11 1600 08/11 0800 08/11 0000 08/10 1600 08/10 0800 08/10 0000 Intake Total 110 200 560 120 290 Output Total 300 350 450 200 Balance 110 -100 210 -330 90 Intake, IV 10 200 50 Intake, Oral 100 200 360 120 240 Output, Urine 300 350 450 200 Physical Exam: General: Alert and oriented x3, no acute distress Cardiac: RRR, s1s2 Pulm: Non-labored respiratory effort. Productive cough noted. Poor effort noted on incentive spirometer, volumes only 1000 presently Abdomen: Non-tender, non-distended Extremities: Moves all extremities, distal sensation intact. Skin warm and well perfused. DP pulses palpable bialterally. Bilateral calves soft and non- tender. Dressing dry and intact. No wound drainage, skin edges well approximated with rené. No surrounding erythema, some ecchymosis. Full extension achievable. Assessment/Plan Assessment/Plan This is a 86 year old female, POD 4 s/p R TKR. Had rapid response on Post Op day 1 with evidence of ekg changes and elevated d dimer. CTA of chest done to r /o PE but showed evidence of mucous plug. Pulmonary and cardiology consultations made. Recommendations were made Anticoagulation: ASA 325 bid currently, Dr. Duarte recommending 10 of eliquis bid for PE coverage in the event that peripheral emboli thrown. Discussed with Dr. Catalan. He agreed to eliquis, however, will only allow 2.5 bid. ASA 81 daily also added and 325 bid dc'd. Recommended pt follow up with him as outpatient. WBC: White count elevated, increased in two subsequent draws post op. Sputum c &S recommended, ordered today. Follow up WBC ordered. Pulmonology: Recommending aggressive pulmonary toilet, incentive spirometry and mobilization. Follow up c&s, follow up as an outpatient. From orthopedic surgical standpoint recommendations include wbat, full range of motion. Keep wound clean and dry. Follow up with Dr. Catalan in 6 weeks from date of surgery. Goree to be removed two weeks post op. Home nursing and home pt recommended. Discharge today likely, will await final results of cbc. Will obtain sputum culture and results can be communicated for outpatient follow through. Core Measures Venous Thromboembolism VTE Risk Factors Surgery No Mechanical VTE Prophylaxis d/t N/A MechProphylax Ordered No VTE Pharm Prophylaxis d/t NA PharmProphylax ordered
[2017-08-11] MEDS ORDERED: ELIQUIS2.5 M1 PO (09:36)
[2017-08-11] MEDS ORDERED: ASPIRIN EC81 M1 PO (09:36)
[2017-08-11 09:41] VITALS: BP 134/70
[2017-08-11 10:31] LABS: ABSOLUTE BASOPHIL COUNT 0 /CUMM (0.0-0.2); ABSOLUTE EOSINOPHIL COUNT 0.1 /CUMM (0.0-0.7); ABSOLUTE GRANULOCYTE CT 13.3 /CUMM (1.4-6.5); ABSOLUTE LYMPH COUNT 1.5 /CUMM (1.2-3.4); ABSOLUTE MONOCYTE COUNT 1.1 /CUMM (0.10-0.60); BASOPHIL % 0.3 % (0.0-2.0); EOSINOPHIL % 0.4 % (0-5); GRANULOCYTE % 82.8 % (42.2-75.2); HEMATOCRIT 27.7 % (37-47); MEAN CORPUSCULAR HGB 31.7 PG (27.0-31.0); MEAN CORPUSCULAR HGB CONC 33.8 G/DL (33.0-37.0); MEAN CORPUSCULAR VOLUME 93.7 FL (81.0-99.0); MEAN PLATELET VOLUME 7.4 FL (7.4-10.4); PLATELET COUNT 562 /CUMM (130-400); RBC DISTRIBUTION WIDTH 14.9 % (11.5-14.5); RED BLOOD CELL CT 2.96 /CUMM (4.20-5.40); WHITE BLOOD CELL COUNT 16.1 /CUMM (4.8-10.8)
== END 2017-08-11 11:38 | disposition home health service (06) | DRG 470 ==
LOC: SDA 02:15 → 1NO 02:15 → SDA 07:00 → ENRESERV 16:18 → ENTRNSPT 16:34 → EDTRNSPTSTS 17:08 → EDTRNSPT 17:08 → CMPTRNSPT 17:17 → 2NA 17:50 → 1NO 08-08 14:49 → ENPENDDIS 08-10 15:41 → EDPENDDIS 08-11 10:56 → ENTRNSPT 08-11 11:21 → EDTRNSPTSTS 08-11 11:23 → EDTRNSPT 08-11 11:23 → 1NO 08-11 11:38 → CMPTRNSPT 08-11 11:47
PROVIDERS: Nurse Practitioner; Orthopaedic Surgery; Physician Assistant; Physician Assistant Surgical
PROC: 0SRC0J9 Replacement of Right Knee Joint with Synthetic Substitute, Cemented, Open Approach (ICD-10-PCS; principal; 2017-08-07)
PROC: 3E0T3BZ Introduction of Anesthetic Agent into Peripheral Nerves and Plexi, Percutaneous Approach (ICD-10-PCS; principal; 2017-08-07)
DX: M17.11 Unilateral primary osteoarthritis, right knee (principal); E87.3 Alkalosis; E83.42 Hypomagnesemia; F17.210 Nicotine dependence, cigarettes, uncomplicated; R55 Syncope and collapse; R94.31 Abnormal electrocardiogram [ECG] [EKG]; Z79.82 Long term (current) use of aspirin; R79.89 Other specified abnormal findings of blood chemistry; F32.9 Major depressive disorder, single episode, unspecified; Z90.13 Acquired absence of bilateral breasts and nipples; Z85.3 Personal history of malignant neoplasm of breast; D72.829 Elevated white blood cell count, unspecified
CPT/HCPCS: 1NP; 2NAP; 36592; 82436; 87070; 88305; 93005; 93010; 94799; 97110-GO; 97116-GO; 97161-GP; 97164-GP; 97530-GO; C1713; J0131; J0690; J2405; J2550; J2795; J3490; J7042